=== PATIENT | male | born 2000 | race Two or more races ===

== ENCOUNTER 2020-05-06 21:55 | Emergency (ER) | payer SELFPAY ==
[~2020-05-06] VITALS: Ht 188 cm; Wt 81.6 kg
[2020-05-07 00:30] VITALS: BP 107/42
[2020-05-07] MEDS ORDERED: NEOMYCIN-BACITRACIN-POLYM UNITDOSE PKG TOP OINT TOP ONE (00:45)
[2020-05-07] MEDS ORDERED: cefTRIAXone SOD 1,000 MG VL IM ONE (00:45)
[2020-05-07] MEDS ORDERED: KETOROLAC TROMETH 60MG/2ML VIAL IM ONE (01:15)
== END 2020-05-07 01:35 | disposition home or self-care (01) ==
LOC: ER 21:55
DX: S01.81XA Laceration without foreign body of other part of head, initial encounter (principal); Y08.89XA Assault by other specified means, initial encounter; Y93.89 Activity, other specified; Y92.89 Other specified places as the place of occurrence of the external cause; Y99.8 Other external cause status
CPT/HCPCS: 12013; 70450; 70486; 72125; 96372; 99285; J0696; J1885